=== PATIENT | male | born 1980 | race Caucasian/White ===

== ENCOUNTER 2020-03-09 09:02 | Emergency (ER) | payer BC, OTHER ==
[2020-03-09] MEDS ORDERED: ONDANSETRON INJ 4 MG/2 ML VIAL IV ONE (09:12)
[2020-03-09] MEDS ORDERED: SODIUM CHLORIDE 0.9% 1000ML 1,000 ML IVS ONE (09:12)
[2020-03-09] MEDS ORDERED: MORPHINE SULFATE INJ 10 MG/ML VIAL IV ONE ×2 (09:12→11:29)
[2020-03-09 09:16] VITALS: O2SAT 100
--- NOTE | 2020-03-09 09:20 | ED.PDOC ---
History of Present Illness - General Chief Complaint: Abdominal Pain Time Seen by Provider: 03/09/20 09:08 Information Source: patient, RN notes reviewed, Vital Signs reviewed Exam Limitations: no limitations - History of Present Illness Initial Comments: 39 yo male with PMH of mechanical heart valve, takes Warfarin, who presents to ED for 3 hour h/o upper abdominal pain and vomiting. States he awoke around 0600 with pain just inferior to ribs bilaterally. Pain has been constant, but intensifies at time and has vomited due to pain. Pain is worst in right upper abdomen and radiates to right flank. Denies diarrhea, fever, dysuria, hematuria, Denies any previous abdominal surgeries. Review of Systems - Review of Systems Constitutional: Denies: chills, fever, weakness EENTM: Denies: nose congestion, throat pain Respiratory: Denies: cough, short of breath Cardiology: Denies: chest pain, palpitations, syncope Gastrointestinal/Abdominal: States: abdominal pain, nausea, vomiting. Denies: diarrhea Genitourinary: Denies: dysuria, frequency, hematuria Musculoskeletal: Denies: muscle pain, neck pain Skin: States: no symptoms reported Hematologic/Lymphatic: States: no symptoms reported All other Systems: Reviewed and Negative Family Medical History - Family History Mother Family History: Unknown Physical Exam - Physical Exam General Appearance: Alert, Well Developed, Well Hydrated, Other - Mild distress Eyes, Ears, Nose, Throat Exam: PERRL/EOMI, pharynx normal Neck: non-tender, full range of motion, supple Respiratory: chest non-tender, lungs clear, normal breath sounds, no respiratory distress, no accessory muscle use Cardiovascular/Chest: other - Bradycardic. regular rhythm. Mechanical clicj heard Peripheral Pulses: 2+ Gastrointestinal/Abdominal: soft, no pulsatile mass, other - TTP RUQ and right flank area. ND. No guarding Back Exam: normal inspection, no vertebral tenderness Extremity: normal range of motion, non-tender, no calf tenderness Neurologic: no motor/sensory deficits, alert, normal mood/affect Skin Exam: normal color, warm/dry Progress - Progress Progress: 03/09/20 09:52 Recheck patient. Resting comfortably. Pain and nausea controlled after Morphine and Zofran. Awaiting CT results. 03/09/20 10:35 D/W radiologist. CT shows nonperforated acute appendicitis. I have d/w pt and results showing acute appendicitis and leukocytosis. Pt has proximal aortic aneurysm trreated surgically in 2015 and had mechanical valve placed and had pacemaker placed at that time. He is on Warfarin. Dr. Derek Tineo with [facility] is his e business manager. Due to PMH, pt requests transfer to [facility] because that is where his e business manager is and facility that he has recieved past care. Will plan to transfer to [facility] . 03/09/20 10:50 I have talked to [facility] transfer line and Dr. Donnie Jimenez accepts pt to ED. Pt agrees with plan. He is NPO and will start Zosyn and transfer via EMS to [facility] . - Results/Orders Results/Orders: CT Abdomen/Pelvis IMPRESSION: 1. Borderline dilation of the appendix with appendicolith and periappendiceal Inflammatory changes suggestive of early appendicitis. Terminal ileum and cecum are unremarkable. No adjacent mass or fluid, but minimal fluid in the anterior peritoneal reflection. 2. Bilateral fatty inguinal hernias not containing bowel. 3. Bilateral nephrolithiasis but no obstruction or hydronephrosis. Ureters are negative. 4. 8 mm radiodense stone in the dependent portion of the gallbladder with no gallbladder wall thickening or adjacent fatty stranding. Ducts are negative. 03/09/20 09:11 IV:Start .ONCE 03/09/20 09:15 EKG .ONCE 03/09/20 10:35 Piperacillin/Tazobactam [Zosyn] 4.5 gm Sodium Chloride 0.9% 100Ml [NS (NACL 0.9%) 100ml] 100 ml IVPB ONCE Laboratory Results - last 24 hr 03/09/20 03/09/20 03/09/20 09:20 09:20 09:20 WBC 14.9 H RBC 4.86 Hgb 14.5 Hct 42.2 MCV 86.8 MCH 29.8 MCHC 34.4 RDW 12.8 Plt Count 274 MPV 7.7 Absolute Neuts (auto) 13.30 H Absolute Lymphs (auto) 1.00 Absolute Monos (auto) 0.60 Absolute Eos (auto) 0.00 Absolute Basos (auto) 0.00 Neutrophils % 89.3 H Lymphocytes % 6.4 L Monocytes % 4.0 Eosinophils % 0.2 L Basophils % 0.1 PT 17.2 H INR 1.74 H Sodium 137 Potassium 3.3 L Chloride 104 Carbon Dioxide 24 Anion Gap 12.3 BUN 15 Creatinine 0.89 BUN/Creatinine Ratio 16.9 Random Glucose 120 H Serum Osmolality 275.8 Calcium 9.3 Total Bilirubin 1.0 AST 26 ALT 25 Alkaline Phosphatase 91 Troponin I Serum Total Protein 7.7 Albumin 4.7 Globulin 3.0 Albumin/Globulin Ratio 1.6 Lipase 39 Urine Color Urine Appearance Urine pH Ur Specific [place] Urine Protein Urine Glucose (UA) Urine Ketones Urine Blood Urine Nitrite Urine Bilirubin Urine Urobilinogen Ur Leukocyte Esterase Urine RBC Urine WBC Ur Epithelial Cells Urine Bacteria 03/09/20 03/09/20 09:20 09:30 WBC RBC Hgb Hct MCV MCH MCHC RDW Plt Count MPV Absolute Neuts (auto) Absolute Lymphs (auto) Absolute Monos (auto) Absolute Eos (auto) Absolute Basos (auto) Neutrophils % Lymphocytes % Monocytes % Eosinophils % Basophils % PT INR Sodium Potassium Chloride Carbon Dioxide Anion Gap BUN Creatinine BUN/Creatinine Ratio Random Glucose Serum Osmolality Calcium Total Bilirubin AST ALT Alkaline Phosphatase Troponin I < 0.02 Serum Total Protein Albumin Globulin Albumin/Globulin Ratio Lipase Urine Color Yellow Urine Appearance Clear Urine pH 7.5 Ur Specific [place] 1.025 Urine Protein Negative Urine Glucose (UA) Negative Urine Ketones 15 H Urine Blood Trace-intact H Urine Nitrite Negative Urine Bilirubin Negative Urine Urobilinogen 0.2 Ur Leukocyte Esterase Negative Urine RBC 0-1 Urine WBC 0 Ur Epithelial Cells 0 Urine Bacteria 0 - EKG/XRAY/CT Comments: Ventricular paced rhythm. Wide QRS. Nonspecific ST abnormality Departure - Departure Clinical Impression: Chronic anticoagulation, H/O cardiac pacemaker Acute appendicitis Qualifiers: Acute appendicitis type: with localized peritonitis Appendicitis gangrene presence: without gangrene Appendicitis perforation presence: without perforation Appendicitis abscess presence: without abscess Qualified Code(s): K35.30 - Acute appendicitis with localized peritonitis, without perforation or gangrene Time of Disposition: 10:53 Disposition: Transfer to Hospital Condition: Fair Departure Forms: ED Discharge - Pt. Copy, Patient Portal Self Enrollment Instructions: DI for Abdominal Pain-Adult Home Medications: Ambulatory Orders Warfarin Sodium 6 mg PO DAILY 03/09/20 Comments: Pt presented to ED for right sided abdomiinal pain, N/V since 0600. Labs show WBC count 14.9K and CT shows nonperforated appendicitis. D/W pt and need for surgery. Since he has mechanical heart valve on Coumadin and pacemaker, they prefer to be transferred to [facility] where his e business manager is and where he receives his care. INR is 1.7 today. Has not eaten or drank since last night. Has been accepted by Dr. Jimenez to ED Transfer to Outside Facility - Transfer Information Decision to Transfer Date: 03/09/20 Decision to Transfer Time: 10:40 Reason for Transfer: Pt request Accepting Provider:: Dr. Jimenez Accepting Facility: [facility]
[2020-03-09] MEDS ORDERED: PIPERACILLIN/TAZOBACTAM 4.5 GM in SODIUM CHLORIDE 0.9% 100ML 100 ML IVPB ONE (10:35)
[2020-03-09] MEDS ORDERED: PIPERACILLIN/TAZOBACTAM 2.25 GM VIAL IVPB ONE (10:41)
--- NOTE | 2020-03-09 10:41 | CT ---
EXAM DESCRIPTION: Abdoment/Pelvis w/o Contrast: Computed Tomography. CLINICAL HISTORY: 39 years Male right flank pain. Prior cardiac valve replacement. COMPARISON: None. TECHNIQUE: Spiral-axial scans 2.5 x 2.5 mm intervals through the abdomen and pelvis without oral or IV contrast. Coronal and sagittal 2.0 mm reconstructions. Total Exam DLP: 653 mGy-cm. This exam was performed according to our departmental CT dose-optimization program which includes automated exposure control, adjustment of the mA and/or kV according to patient size and/or use of iterative reconstruction technique; to reduce radiation dose to as low as reasonably achievable (ALARA). FINDINGS: Lung bases and pleura: Cardiac pacing leads in the right atrium and right ventricle. Pleural parenchymal scarring left lower lobe Liver, stomach, spleen, and adrenal glands: Minimal gas in the distal esophagus. Stomach negative. Spleen and other solid organs are unremarkable. Pancreas, Gallbladder, and Ducts: 8 mm radiodense stone in the tendon portion of the inferior gallbladder. Gallbladder minimally prominent but no surrounding fatty inflammatory changes. Duct and pancreas negative. Kidneys and Ureters: Small radiodense deposits in the collecting systems of the bilateral kidneys measuring less than 3 mm with no hydronephrosis. No perirenal fluid. Bilateral ureters are unremarkable. Mesentery: Negative. Aorta: Unremarkable. Small Bowel: Negative. Terminal Ileum/Cecum: Appendix is borderline thickened measuring between 6 to 8 mm transverse diameter with minimal stranding and a central appendicolith. Minimal paracolic fascial thickening. Normal caliber of the terminal ileum and cecum.. Colon: Minimal fecal matter proximal colon more decompressed distally. Pelvic Organs: Minimal fluid in the anterior peritoneal reflection anterior to the sigmoid colon and superior to the urinary bladder. No radiodense stones in the urinary bladder. Spine and Bony Pelvis: Minimal narrowing of the superior lateral hip joints with minimal hypertrophy of the overlying acetabulum. Abdominal Wall/Back Soft Tissues: Bilateral fatty inguinal hernias not containing bowel. IMPRESSION: 1. Borderline dilation of the appendix with appendicolith and periappendiceal Inflammatory changes suggestive of early appendicitis. Terminal ileum and cecum are unremarkable. No adjacent mass or fluid, but minimal fluid in the anterior peritoneal reflection. 2. Bilateral fatty inguinal hernias not containing bowel. 3. Bilateral nephrolithiasis but no obstruction or hydronephrosis. Ureters are negative. 4. 8 mm radiodense stone in the dependent portion of the gallbladder with no gallbladder wall thickening or adjacent fatty stranding. Ducts are negative. CRITICAL COMMUNICATION: The critical value was communicated directly by Dr. Mejía via phone call, with Dr. Mohan Cordova, at approximately 1030 hours, on 09 March 2020. Electronically signed by: Adrian Mejía MD 03/09/2020 10:39 AM CDT
[2020-03-09] MEDS ORDERED: SODIUM CHLORIDE 0.9% 100ML 100 ML IVPB ONE (10:42)
[2020-03-09] MEDS ORDERED: SODIUM CHLORIDE 0.9% 1000ML 1,000 ML IVS PRN (11:29)
[2020-03-09 12:13] VITALS: BP 122/68; TEMP 98.2
== END 2020-03-09 12:05 | disposition short-term general hospital (02) ==
LOC: ER 09:02
DX: K35.30 Acute appendicitis with localized peritonitis, without perforation or gangrene (principal); D72.829 Elevated white blood cell count, unspecified; R11.10 Vomiting, unspecified; Z95.2 Presence of prosthetic heart valve; Z95.0 Presence of cardiac pacemaker; Z79.01 Long term (current) use of anticoagulants
CPT/HCPCS: 74176; 80053; 81001; 83690; 84484; 85025; 85610; 93005; J2270; J2405; J2543; J7030; J7050